=== PATIENT | male | born 1935 | race Caucasian/White ===

== ENCOUNTER 2021-08-05 11:51 | Outpatient (CLI) | payer MEDICARE ==
[2021-08-05 22:15] LABS: SARS-CoV-2 PCR by NAA Not Detected (NotDetected)
== END 2021-08-05 11:52 | disposition home or self-care (01) ==
LOC: CSHLAB 11:51
PROVIDERS: ATTEND Surgery
DX: Z20.822 Contact with and (suspected) exposure to COVID-19 (principal)
CPT/HCPCS: U0003; U0005

== ENCOUNTER 2021-12-23 13:33 | Outpatient (CLI) | payer MEDICARE | END 2021-12-23 13:34 | disposition home or self-care (01) | LOC: CSHRAD 13:33 | PROVIDERS: ATTEND Internal Medicine Hematology & Oncology | DX: R06.02 Shortness of breath (principal); J90 Pleural effusion, not elsewhere classified; C79.51 Secondary malignant neoplasm of bone; Z95.828 Presence of other vascular implants and grafts | CPT/HCPCS: 71046 ==

== ENCOUNTER 2021-12-23 17:34 | Inpatient (IN) | payer MEDICARE ==
[2021-12-23] MEDS ORDERED: Cefepime 2 GM VIAL ONE (19:04)
[2021-12-23 19:09] LABS: Hemoglobin 10.1 g/dL (13.5-17.5); Mean Corpuscular HGB CONC 34.1 g/dL (32.0-36.0); Mean Corpuscular Hemoglobin 34.6 pg (27.0-33.0); Mean Corpuscular Volume 101.4 fl (81.2-95.1); Mean Platelet Volume 10.4 fl (7.4-10.4); Platelet Count 202 10x3/uL (150-450); RBC Distribution Width 17.8 % (11.5-14.5); Red Blood Cell (RBC) Count 2.92 10x6/uL (4.32-5.72); White Blood Cell (WBC) Count 3.3 10x3/uL (3.5-10.5)
[2021-12-23 19:21] LABS: ALT (SGPT) 22 U/L (8-55); AST (SGOT) 34 U/L (5-34); Albumin 2.8 g/dL (3.4-4.8); Alkaline Phosphatase 51 U/L (40-110); Anion Gap 11 mmol/L (10-20); BUN (Urea Nitrogen) 18 mg/dL (8.4-25.7); Bilirubin, Total 1.1 mg/dL (0.2-1.2); Calc. Creatinine Clearance 0 mL/min (70-130); Calcium 8.4 mg/dL (7.8-10.44); Carbon Dioxide 28 mmol/L (23-31); Chloride 94 mmol/L (98-107); Estimated GFR 93; Globulin 1.7 g/dL (2.4-3.5); Glucose 123 mg/dL (83-110); Potassium 4.1 mmol/L (3.5-5.1); Protein, Total 4.5 g/dL (5.8-8.1); Sodium 129 mmol/L (136-145)
[2021-12-23 19:49] LABS: Band 1 % (5-11); Lymphocytes 11 % (21-51); Monocytes 16 % (0-10); Myelocyte 1 % (0-0); Neutrophil 69 % (42-75); Reactive Lymphocytes 2 % (0-10)
[2021-12-23 19:50] LABS: Anisocytosis SLIGHT = 6-15 cells (100X) (0-5/hpf); MDiff Complete? YES; Macrocytosis SLIGHT = 6-15 cells (100X) (0-5/hpf); Polychromasia SLIGHT = 2-3 cells (100X) (0-2/hpf)
[2021-12-23 19:51] LABS: Ovalocytes MODERATE= 6-15 cells (100X) (0-1/hpf); Tear Drops SLIGHT = 2-5 cells (100X) (0-1/hpf)
[2021-12-23 19:52] LABS: Platelet Morphology Comment Appears Adequate; Schistocytes SLIGHT = 2-5 cells (100X) (0-1/hpf)
[2021-12-23] MEDS ORDERED: VANCOMYCIN 2 GRAM/400 ML BAG 2 GM in Premix Bag 1 BAG IVPB SCH (20:00)
[2021-12-23] MEDS ORDERED: Acetaminophen 325 MG TAB PO PRN (21:41)
[2021-12-23] MEDS ORDERED: Guaifenesin DM 100-10/5 ML UDCUP PO PRN (21:41)
[2021-12-23] MEDS ORDERED: Calcium Carbonate 500 MG ChewTAB PO PRN (21:41)
[2021-12-23] MEDS ORDERED: Ondansetron PF 4 MG/2 ML Vial IVP PRN (21:41)
[2021-12-23] MEDS ORDERED: Senokot S 8.6-50 MG TAB PO PRN (21:41)
[2021-12-23] MEDS ORDERED: HYDROcodone/Acetaminophen 5/325 mg Tablet PO PRN (21:41)
[2021-12-23 21:56] VITALS: BMI 25.2
[2021-12-23] MEDS ORDERED: Sodium Chloride 0.9% 500 ML IV SCH (22:00)
[2021-12-23] MEDS: Artificial Tear Sol 15 ML BOT EA EYE SCH (23:11)
[2021-12-24] MEDS ORDERED: NEOMYCIN EA EYE SCH (03:30)
[2021-12-24] MEDS ORDERED: POLYMYXIN B EA EYE SCH (03:30)
[2021-12-24] MEDS ORDERED: GRAMICIDIN EA EYE SCH (03:30)
[2021-12-24 05:57] LABS: Hemoglobin 9.1 g/dL (13.5-17.5); Mean Corpuscular HGB CONC 34.1 g/dL (32.0-36.0); Mean Corpuscular Hemoglobin 33.8 pg (27.0-33.0); Mean Corpuscular Volume 99.3 fl (81.2-95.1); Mean Platelet Volume 10.1 fl (7.4-10.4); Platelet Count 175 10x3/uL (150-450); RBC Distribution Width 17.9 % (11.5-14.5); Red Blood Cell (RBC) Count 2.69 10x6/uL (4.32-5.72); White Blood Cell (WBC) Count 2.5 10x3/uL (3.5-10.5)
[2021-12-24 06:01] LABS: Anion Gap 10 mmol/L (10-20); BUN (Urea Nitrogen) 16 mg/dL (8.4-25.7); Calc. Creatinine Clearance 112 mL/min (70-130); Calcium 7.8 mg/dL (7.8-10.44); Carbon Dioxide 27 mmol/L (23-31); Chloride 97 mmol/L (98-107); Estimated GFR 95; Glucose 83 mg/dL (83-110); Potassium 3.8 mmol/L (3.5-5.1); Sodium 130 mmol/L (136-145)
[2021-12-24 06:08] LABS: MDiff Complete? YES
[2021-12-24] MEDS: Artificial Tear Sol 15 ML BOT EA EYE SCH ×4 (06:13→23:52)
[2021-12-24] MEDS ORDERED: Cefepime 1 GM in Sodium Chloride 0.9% 100 ML IVPB SCH (06:30)
[2021-12-24 06:47] LABS: Band 6 % (5-11); Lymphocytes 17 % (21-51); Monocytes 30 % (0-10); Neutrophil 47 % (42-75); Nucleated RBC 8 % (0)
[2021-12-24 06:48] LABS: Anisocytosis MODERATE=16-30 cells (100X) (0-5/hpf)
[2021-12-24 06:49] LABS: Hypochromia SLIGHT = 6-15 cells (100X) (0-5/hpf); Macrocytosis SLIGHT = 6-15 cells (100X) (0-5/hpf); Microcytosis SLIGHT = 6-15 cells (100X) (0-5/hpf); Schistocytes SLIGHT = 2-5 cells (100X) (0-1/hpf)
[2021-12-24] MEDS ORDERED: Lisinopril 20 MG TAB PO SCH (09:00)
[2021-12-24] MEDS: Potassium Chloride 10 MEQ TAB PO SCH (10:17)
[2021-12-24] MEDS: Multivitamin W/ Minerals 1 TAB PO SCH (10:17)
[2021-12-24] MEDS: Zinc Gluconate 50 MG TAB PO SCH (10:17)
[2021-12-24] MEDS: Vancomycin HCl 1 GM in Sodium Chloride 0.9% 250 ML 250 ML IVPB SCH ×2 (10:18→21:00)
[2021-12-24] MEDS: Tamsulosin HCl 0.4 MG CAP PO SCH (10:18)
[2021-12-24] MEDS: Saccharomyces boulardii 250 MG CAP PO SCH (10:18)
[2021-12-24] MEDS: Rivaroxaban 10 MG TAB PO SCH (10:20)
[2021-12-24] MEDS: Nystatin Powder 15 GM BOT TOP SCH ×2 (10:20→22:00)
[2021-12-24] MEDS: Cefepime 2 GM in Sodium Chloride 0.9% 100 ML IVPB SCH (18:16)
[2021-12-24] MEDS: POLYMYXIN B EA EYE SCH (22:00)
[2021-12-24] MEDS: NEOMYCIN EA EYE SCH (22:00)
[2021-12-24] MEDS: GRAMICIDIN EA EYE SCH (22:00)
[2021-12-25] MEDS: Cefepime 2 GM in Sodium Chloride 0.9% 100 ML IVPB SCH ×2 (05:39→17:49)
[2021-12-25] MEDS: Artificial Tear Sol 15 ML BOT EA EYE SCH ×4 (05:39→20:36)
[2021-12-25 07:19] LABS: Hemoglobin 10.1 g/dL (13.5-17.5); Mean Corpuscular Hemoglobin 34.6 pg (27.0-33.0); Mean Corpuscular Volume 101.7 fl (81.2-95.1); Mean Platelet Volume 9.9 fl (7.4-10.4); Platelet Count 197 10x3/uL (150-450); RBC Distribution Width 17.6 % (11.5-14.5); Red Blood Cell (RBC) Count 2.92 10x6/uL (4.32-5.72); White Blood Cell (WBC) Count 3.1 10x3/uL (3.5-10.5)
[2021-12-25 07:25] LABS: Vancomycin, Trough 11.9 ug/mL
[2021-12-25 07:28] LABS: Anion Gap 10 mmol/L (10-20); BUN (Urea Nitrogen) 14 mg/dL (8.4-25.7); Calc. Creatinine Clearance 114 mL/min (70-130); Calcium 7.5 mg/dL (7.8-10.44); Carbon Dioxide 27 mmol/L (23-31); Chloride 99 mmol/L (98-107); Estimated GFR 95; Glucose 81 mg/dL (83-110); Sodium 132 mmol/L (136-145)
[2021-12-25] MEDS: Vancomycin HCl 1 GM in Sodium Chloride 0.9% 250 ML 250 ML IVPB SCH ×2 (08:10→20:35)
[2021-12-25 08:14] LABS: Band 5 % (5-11); Lymphocytes 13 % (21-51); Monocytes 24 % (0-10); Neutrophil 58 % (42-75)
[2021-12-25 08:15] LABS: Anisocytosis SLIGHT = 6-15 cells (100X) (0-5/hpf); Macrocytosis SLIGHT = 6-15 cells (100X) (0-5/hpf); Microcytosis SLIGHT = 6-15 cells (100X) (0-5/hpf); Ovalocytes MODERATE= 6-15 cells (100X) (0-1/hpf); Poikilocytosis SLIGHT = 6-15 cells (100X) (0-5/hpf)
[2021-12-25 08:16] LABS: Basophilic Stippling SLIGHT = 1-2 cells (100X) (None Seen); Polychromasia SLIGHT = 2-3 cells (100X) (0-2/hpf)
[2021-12-25] MEDS: Multivitamin W/ Minerals 1 TAB PO SCH (08:16)
[2021-12-25 08:17] LABS: Platelet Morphology Comment Appears Adequate
[2021-12-25] MEDS: Saccharomyces boulardii 250 MG CAP PO SCH (08:17)
[2021-12-25] MEDS: Potassium Chloride 10 MEQ TAB PO SCH (08:17)
[2021-12-25] MEDS: Rivaroxaban 10 MG TAB PO SCH (08:17)
[2021-12-25] MEDS: Nystatin Powder 15 GM BOT TOP SCH ×2 (08:17→20:35)
[2021-12-25] MEDS: Tamsulosin HCl 0.4 MG CAP PO SCH (08:17)
[2021-12-25 08:18] LABS: MDiff Complete? YES
[2021-12-25] MEDS: Zinc Gluconate 50 MG TAB PO SCH (08:20)
[2021-12-25] MEDS: Lisinopril 20 MG TAB PO SCH (08:31)
[2021-12-25] MEDS: Loratadine 10 MG TAB PO SCH (08:31)
[2021-12-25] MEDS ORDERED: Furosemide 20 MG/2 ML VIAL SLOW IVP SCH (11:45)
[2021-12-25] MEDS: guaiFENesin ER 600 MG TAB PO SCH (20:35)
[2021-12-25] MEDS: GRAMICIDIN EA EYE SCH (20:35)
[2021-12-25] MEDS: NEOMYCIN EA EYE SCH (20:35)
[2021-12-25] MEDS: POLYMYXIN B EA EYE SCH (20:35)
[2021-12-26] MEDS: Artificial Tear Sol 15 ML BOT EA EYE SCH ×3 (06:05→17:13)
[2021-12-26] MEDS: Cefepime 2 GM in Sodium Chloride 0.9% 100 ML IVPB SCH ×2 (06:06→17:02)
[2021-12-26] MEDS: Vancomycin HCl 1 GM in Sodium Chloride 0.9% 250 ML 250 ML IVPB SCH ×2 (08:50→20:11)
[2021-12-26] MEDS: Tamsulosin HCl 0.4 MG CAP PO SCH (08:51)
[2021-12-26] MEDS: Rivaroxaban 10 MG TAB PO SCH (08:51)
[2021-12-26] MEDS: Loratadine 10 MG TAB PO SCH (08:51)
[2021-12-26] MEDS: Zinc Gluconate 50 MG TAB PO SCH (08:51)
[2021-12-26] MEDS: Saccharomyces boulardii 250 MG CAP PO SCH (08:51)
[2021-12-26] MEDS: Potassium Chloride 10 MEQ TAB PO SCH (08:52)
[2021-12-26] MEDS: Multivitamin W/ Minerals 1 TAB PO SCH (08:52)
[2021-12-26] MEDS: guaiFENesin ER 600 MG TAB PO SCH ×2 (08:52→20:11)
[2021-12-26] MEDS: Nystatin Powder 15 GM BOT TOP SCH ×2 (08:52→20:11)
[2021-12-26] MEDS: Lisinopril 20 MG TAB PO SCH (08:59)
[2021-12-26] MEDS ORDERED: Iopamidol 300 61% 100 ML VIAL FS ONE (09:11)
[2021-12-26] MEDS ORDERED: Furosemide 40 MG/4 ML VIAL SLOW IVP SCH (16:45)
[2021-12-26] MEDS: POLYMYXIN B EA EYE SCH (20:11)
[2021-12-26] MEDS: GRAMICIDIN EA EYE SCH (20:11)
[2021-12-26] MEDS: NEOMYCIN EA EYE SCH (20:11)
[2021-12-27] MEDS: Artificial Tear Sol 15 ML BOT EA EYE SCH ×4 (00:37→17:51)
[2021-12-27 04:54] LABS: Hemoglobin 10.9 g/dL (13.5-17.5); Mean Corpuscular HGB CONC 33.2 g/dL (32.0-36.0); Mean Corpuscular Hemoglobin 34.1 pg (27.0-33.0); Mean Corpuscular Volume 102.5 fl (81.2-95.1); Mean Platelet Volume 9.6 fl (7.4-10.4); Platelet Count 204 10x3/uL (150-450); RBC Distribution Width 17.4 % (11.5-14.5); White Blood Cell (WBC) Count 3.9 10x3/uL (3.5-10.5)
[2021-12-27 05:14] LABS: Anion Gap 12 mmol/L (10-20); BUN (Urea Nitrogen) 12 mg/dL (8.4-25.7); Calc. Creatinine Clearance 118 mL/min (70-130); Calcium 7.6 mg/dL (7.8-10.44); Carbon Dioxide 29 mmol/L (23-31); Chloride 99 mmol/L (98-107); Estimated GFR 96; Glucose 93 mg/dL (83-110); Potassium 3.7 mmol/L (3.5-5.1); Sodium 136 mmol/L (136-145)
[2021-12-27] MEDS: Cefepime 2 GM in Sodium Chloride 0.9% 100 ML IVPB SCH ×2 (05:37→17:50)
[2021-12-27 07:10] LABS: Vancomycin, Trough 13.4 ug/mL
[2021-12-27] MEDS: Vancomycin HCl 1 GM in Sodium Chloride 0.9% 250 ML 250 ML IVPB SCH ×2 (09:05→21:00)
[2021-12-27] MEDS: guaiFENesin ER 600 MG TAB PO SCH ×2 (09:08→21:00)
[2021-12-27] MEDS: Saccharomyces boulardii 250 MG CAP PO SCH (09:08)
[2021-12-27] MEDS: Zinc Gluconate 50 MG TAB PO SCH (09:09)
[2021-12-27] MEDS: Loratadine 10 MG TAB PO SCH (09:09)
[2021-12-27] MEDS: Multivitamin W/ Minerals 1 TAB PO SCH (09:09)
[2021-12-27] MEDS: Rivaroxaban 10 MG TAB PO SCH (09:09)
[2021-12-27] MEDS: Tamsulosin HCl 0.4 MG CAP PO SCH (09:09)
[2021-12-27] MEDS: Potassium Chloride 10 MEQ TAB PO SCH (09:09)
[2021-12-27] MEDS: Lisinopril 20 MG TAB PO SCH (09:10)
[2021-12-27] MEDS: Nystatin Powder 15 GM BOT TOP SCH ×2 (09:10→21:01)
[2021-12-27] MEDS ORDERED: Furosemide 40 MG/4 ML VIAL SLOW IVP SCH (13:00)
[2021-12-27] MEDS: POLYMYXIN B EA EYE SCH (21:01)
[2021-12-27] MEDS: GRAMICIDIN EA EYE SCH (21:01)
[2021-12-27] MEDS: NEOMYCIN EA EYE SCH (21:01)
[2021-12-28] MEDS: Artificial Tear Sol 15 ML BOT EA EYE SCH ×4 (00:55→18:06)
[2021-12-28] MEDS: Cefepime 2 GM in Sodium Chloride 0.9% 100 ML IVPB SCH ×2 (05:28→18:06)
[2021-12-28] MEDS: Vancomycin HCl 1 GM in Sodium Chloride 0.9% 250 ML 250 ML IVPB SCH (09:33)
[2021-12-28] MEDS: Rivaroxaban 10 MG TAB PO SCH (09:37)
[2021-12-28] MEDS: Tamsulosin HCl 0.4 MG CAP PO SCH (09:37)
[2021-12-28] MEDS: Multivitamin W/ Minerals 1 TAB PO SCH (09:38)
[2021-12-28] MEDS: guaiFENesin ER 600 MG TAB PO SCH ×2 (09:38→21:55)
[2021-12-28] MEDS: Zinc Gluconate 50 MG TAB PO SCH (09:38)
[2021-12-28] MEDS: Potassium Chloride 10 MEQ TAB PO SCH (09:38)
[2021-12-28] MEDS: Furosemide 40 MG/4 ML VIAL SLOW IVP SCH (09:38)
[2021-12-28] MEDS: Loratadine 10 MG TAB PO SCH (09:38)
[2021-12-28] MEDS: Saccharomyces boulardii 250 MG CAP PO SCH (09:38)
[2021-12-28] MEDS: Lisinopril 20 MG TAB PO SCH (09:38)
[2021-12-28] MEDS: Nystatin Powder 15 GM BOT TOP SCH ×2 (09:39→21:55)
[2021-12-28] MEDS: NEOMYCIN EA EYE SCH (21:55)
[2021-12-28] MEDS: GRAMICIDIN EA EYE SCH (21:55)
[2021-12-28] MEDS: POLYMYXIN B EA EYE SCH (21:55)
[2021-12-29] MEDS: Artificial Tear Sol 15 ML BOT EA EYE SCH ×5 (00:30→21:26)
[2021-12-29] MEDS: Cefepime 2 GM in Sodium Chloride 0.9% 100 ML IVPB SCH (06:32)
[2021-12-29] MEDS: Tamsulosin HCl 0.4 MG CAP PO SCH (08:54)
[2021-12-29] MEDS: Saccharomyces boulardii 250 MG CAP PO SCH (08:54)
[2021-12-29] MEDS: Furosemide 40 MG/4 ML VIAL SLOW IVP SCH (08:54)
[2021-12-29] MEDS: Multivitamin W/ Minerals 1 TAB PO SCH (08:54)
[2021-12-29] MEDS: Loratadine 10 MG TAB PO SCH (08:54)
[2021-12-29] MEDS: guaiFENesin ER 600 MG TAB PO SCH ×2 (08:54→21:27)
[2021-12-29] MEDS: Lisinopril 20 MG TAB PO SCH (08:54)
[2021-12-29] MEDS: Zinc Gluconate 50 MG TAB PO SCH (08:55)
[2021-12-29] MEDS: Potassium Chloride 10 MEQ TAB PO SCH (08:55)
[2021-12-29] MEDS: Nystatin Powder 15 GM BOT TOP SCH ×2 (08:55→21:27)
[2021-12-29] MEDS: Rivaroxaban 10 MG TAB PO SCH (08:55)
[2021-12-29] MEDS ORDERED: Rivaroxaban 10 MG TAB PO SCH (09:00)
[2021-12-29] MEDS ORDERED: Neosporin Ophth Soln 10 ml Bottle EA EYE SCH ×2 (10:15→21:00)
[2021-12-29] MEDS ORDERED: POLYMYXIN B EA EYE SCH (11:00)
[2021-12-29] MEDS ORDERED: GRAMICIDIN EA EYE SCH (11:00)
[2021-12-29] MEDS ORDERED: NEOMYCIN EA EYE SCH (11:00)
[2021-12-29] MEDS: GRAMICIDIN EA EYE SCH (21:27)
[2021-12-29] MEDS: NEOMYCIN EA EYE SCH (21:27)
[2021-12-29] MEDS: POLYMYXIN B EA EYE SCH (21:27)
[2021-12-30] MEDS: Artificial Tear Sol 15 ML BOT EA EYE SCH ×2 (06:28→14:52)
[2021-12-30] MEDS: Rivaroxaban 10 MG TAB PO SCH (09:33)
[2021-12-30] MEDS: Potassium Chloride 10 MEQ TAB PO SCH (09:33)
[2021-12-30] MEDS: Lisinopril 20 MG TAB PO SCH (09:33)
[2021-12-30] MEDS: Furosemide 40 MG/4 ML VIAL SLOW IVP SCH (09:33)
[2021-12-30] MEDS: Loratadine 10 MG TAB PO SCH (09:33)
[2021-12-30] MEDS: Zinc Gluconate 50 MG TAB PO SCH (09:33)
[2021-12-30] MEDS: Tamsulosin HCl 0.4 MG CAP PO SCH (09:33)
[2021-12-30] MEDS: Saccharomyces boulardii 250 MG CAP PO SCH (09:33)
[2021-12-30] MEDS: guaiFENesin ER 600 MG TAB PO SCH (09:33)
[2021-12-30] MEDS: Multivitamin W/ Minerals 1 TAB PO SCH (09:33)
[2021-12-30] MEDS: Nystatin Powder 15 GM BOT TOP SCH (09:43)
[2021-12-30 12:56] VITALS: TEMP 97.8
[2021-12-30 15:53] VITALS: BP 111/74
== END 2021-12-30 15:18 | DRG 602 ==
LOC: CSHERS 17:34 → CSHTELE 21:12 → INTOOBSV 21:12 → OBSVTOIN 12-25 08:08
PROVIDERS: ADMIT Student in an Organized Health Care Education/Training Program; ATTEND Hospitalist
DX: L03.115 Cellulitis of right lower limb (principal); J96.01 Acute respiratory failure with hypoxia; C79.51 Secondary malignant neoplasm of bone; E87.1 Hypo-osmolality and hyponatremia; I69.351 Hemiplegia and hemiparesis following cerebral infarction affecting right dominant side; J90 Pleural effusion, not elsewhere classified; Z66 Do not resuscitate; Z51.5 Encounter for palliative care; I10 Essential (primary) hypertension; B35.3 Tinea pedis; E88.09 Other disorders of plasma-protein metabolism, not elsewhere classified; C61 Malignant neoplasm of prostate; N40.1 Benign prostatic hyperplasia with lower urinary tract symptoms; R33.8 Other retention of urine; R53.81 Other malaise; D53.9 Nutritional anemia, unspecified; S90.821A Blister (nonthermal), right foot, initial encounter; I35.0 Nonrheumatic aortic (valve) stenosis; Z20.822 Contact with and (suspected) exposure to COVID-19; Z79.01 Long term (current) use of anticoagulants; Z80.9 Family history of malignant neoplasm, unspecified; Z98.890 Other specified postprocedural states; Z92.21 Personal history of antineoplastic chemotherapy; Z86.718 Personal history of other venous thrombosis and embolism; Z79.899 Other long term (current) drug therapy; Z95.828 Presence of other vascular implants and grafts
CPT/HCPCS: 36415; 71045; 71046; 71260; 80048; 80053; 80202; 82565; 83605; 85025; 85027; 85652; 86140; 87040; 93306; 93970; 94760; 96365; 96366; 96367; 96376; 97139; G0378; J0692; J1642; J1940; J3370; J3490; J7030; J7050; Q9967; U0003; U0005

== ENCOUNTER 2022-04-04 13:34 | Outpatient (CLI) | payer MEDICARE | END 2022-04-04 13:35 | disposition home or self-care (01) | LOC: CSHRAD 13:34 | PROVIDERS: ATTEND Neurological Surgery | DX: S22.008A Other fracture of unspecified thoracic vertebra, initial encounter for closed fracture (principal); S22.088D Other fracture of T11-T12 vertebra, subsequent encounter for fracture with routine healing; S32.018D Other fracture of first lumbar vertebra, subsequent encounter for fracture with routine healing | CPT/HCPCS: 72100 ==